=== PATIENT | female | born 1995 ===

== ENCOUNTER 2019-06-02 16:41 | Day surgery (SDC) | payer OTHER, SELFPAY ==
[2019-06-02] MEDS ORDERED: hydrALAZINE 20 MG/ML VIAL SLOW IVP PRN (17:15)
--- NOTE | 2019-06-02 17:50 | CON ---
DATE OF CONSULTATION: 06/02/2019 PRIMARY OB: None. CHIEF COMPLAINT: Pelvic pains. HISTORY OF PRESENT ILLNESS: The patient is a 24-year-old, reported G5, P3 female with an intrauterine at 39 weeks and 1 day, who recently moved from [place] to the area and has not established care. The patient is presenting with complaints of pelvic pain that she reports as sharp in nature. She denies uterine contractions. She denies vaginal bleeding or leakage of fluid. She also reports that her hands have been falling asleep while she is asleep. She denies any complications with her previous pregnancies. She states, this , she has been receiving care prior to moving here a few weeks ago. The patient denies any recent illness, fever, fall, headache, chest pain, shortness of breath, nausea, vomiting, diarrhea, constipation, hip problems, knee problems, or muscle weakness. She denies vaginal bleeding, leakage of fluid, or urinary urgency or frequency. PAST MEDICAL HISTORY: Negative. PAST SURGICAL HISTORY: She has had procedure for an ectopic . ALLERGIES: NO KNOWN DRUG ALLERGIES. SOCIAL HISTORY: Denies drug, alcohol, or tobacco use. MEDICATIONS: vitamins. OB LABORATORY DATA: Unavailable at the time of dictation. REVIEW OF SYSTEMS: Per HPI. PHYSICAL EXAMINATION: VITAL SIGNS: Blood pressure 116/72, heart rate of 83, respiratory rate of 18. GENERAL: She appears to be in no acute distress. She is alert and oriented, cooperative and pleasant to interact with. HEAD: Normocephalic and atraumatic. LUNGS: Clear to auscultation bilaterally. HEART: Has a regular rate and rhythm. ABDOMEN: Gravid, soft, and nontender. EXTREMITIES: Nontender and nonedematous. CERVICAL: 1, thick, and high per nursing staff. heart tracing shows the fetus with a baseline in the 120s with moderate long-term variability, positive 15 x 15 accelerations, no decelerations. Tocometer not showing any contractions. ASSESSMENT AND PLAN: The patient is a 24-year-old multiparous female with an intrauterine at 39 weeks, just moving to the area. She has no evidence of labor at this time. We will be attempting to acquire her records. Dr. Ruth, one of the local third year residents, has met with Ms. Ramos and will be helping her establish care with clinic and also get her records. The patient can be discharged home. Fetus is reactive and reassuring with a category 1 tracing. Job ID: [id number]
[2019-06-02 17:52] VITALS: BMI 24.9
== END 2019-06-02 17:30 | disposition home health service (06) ==
LOC: L&D/OP 16:41
PROVIDERS: ATTEND Obstetrics & Gynecology
DX: O23.593 Infection of other part of genital tract in pregnancy, third trimester (principal); B95.1 Streptococcus, group B, as the cause of diseases classified elsewhere; O09.13 Supervision of pregnancy with history of ectopic pregnancy, third trimester; Z3A.39 39 weeks gestation of pregnancy; Z88.0 Allergy status to penicillin
CPT/HCPCS: 87077; 87081; 99283

== ENCOUNTER 2019-06-11 19:29 | Inpatient (IN) | payer SELFPAY ==
[~2019-06-11 19:29] MED LIST: Bupivacaine/Epinephrine 0.25% 30 ML VIAL ONE
[2019-06-11 21:50] VITALS: BMI 33.0
[2019-06-11] MEDS ORDERED: Acetaminophen 500 MG TAB PO PRN (22:08)
[2019-06-11] MEDS ORDERED: Misoprostol 200 MCG TAB PR PRN (22:08)
[2019-06-11] MEDS ORDERED: NS / Oxytocin 40 units/1000ml 1,000 ML IV PRN (22:08)
[2019-06-11] MEDS ORDERED: Methylergonovine 0.2 MG/ML VIAL IM PRN (22:08)
[2019-06-11] MEDS ORDERED: Lidocaine 1% (PF) 30 ML VIAL SC PRN (22:08)
[2019-06-11] MEDS ORDERED: Carboprost 250 MCG/ML AMP IM PRN (22:08)
[2019-06-11] MEDS ORDERED: Docusate 100 MG CAP PO PRN (22:08)
[2019-06-11] MEDS ORDERED: Promethazine HCl 25 MG/ML VIAL IM PRN (22:08)
[2019-06-11] MEDS ORDERED: Ondansetron PF 4 MG/2 ML Vial IVP PRN (22:08)
[2019-06-11] MEDS ORDERED: Ibuprofen 800 MG TAB PO PRN (22:08)
[2019-06-11] MEDS ORDERED: Butorphanol Tartrate 1 MG/ML VIAL SLOW IVP PRN (22:08)
[2019-06-11] MEDS ORDERED: hydrALAZINE 20 MG/ML VIAL SLOW IVP PRN (22:08)
[2019-06-11] MEDS ORDERED: NS w/ Oxytocin 10 units 500 ML IV SCH ×2 (22:15)
[2019-06-11] MEDS: Lactated Ringer's 1,000 ML IV SCH (22:20)
[2019-06-11] MEDS: Misoprostol 100 MCG TAB VAG SCH (22:27)
[2019-06-11 22:29] LABS: Hemoglobin 12.1 g/dL (12.0-16.0); Mean Corpuscular HGB CONC 34.9 g/dL (32.0-36.0); Mean Corpuscular Hemoglobin 29.1 pg (27.0-31.0); Mean Corpuscular Volume 83.3 fL (78.0-98.0); Mean Platelet Volume 12.3 fL (7.4-10.4); Platelet Count 130 thou/uL (130-400); RBC Distribution Width 13.5 % (11.5-14.5); Red Blood Cell (RBC) Count 4.14 mill/uL (4.20-5.40); White Blood Cell (WBC) Count 10.8 thou/uL (4.8-10.8)
[2019-06-11] MEDS: Vancomycin 1 GM in Premix Bag 1 BAG IVPB SCH (22:33)
--- NOTE | 2019-06-11 22:42 | PDOC.FPROB ---
FMR OB H&P: HPI - History of Present Illness Chief Complaint: eIOL History of Present Illness: 24 yo F @ 40.3 wks by 19.2 wk US (JASPER 06/08/19) who presents for elective induction of labor. She says she has had no recent vaginal bleeding, loss of fluid, abnormal vaginal discharge, or contractions. She says she lost her mucus plug around 35 weeks and had some vaginal spotting some weeks ago that has since resolved. She says baby has been moving around well. 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 - Family History Family History: Acute storke, HTN, DMII, thyroid problems, mood disorders FMR OB H&P: Medications - Current Home Medications: Medication Instructions Recorded Confirmed Type Omeprazole 10 mg PO DAILY 06/02/19 06/11/19 History Vitamin 1 tab PO DAILY 06/02/19 06/11/19 History Allergies/Adverse Reactions: Allergies Allergy/AdvReac Type Severity Reaction Status Date / Time Penicillins Allergy Intermediate Severe Verified 06/11/19 21:52 Hives FMR OB H&P: ROS - Review of Systems General: denies: fever/chills Eyes: denies: vision changes ENT: denies: nasal congestion, rhinorrhea, sinus pain/pressure Cardiovascular: denies: chest pain, edema Respiratory: denies: cough, congestion, shortness of breath Gastrointestinal: denies: abdominal pain, nausea, vomiting, diarrhea, constipation Genitourinary (Female): denies: dysuria, vaginal discharge, vaginal bleeding, contractions Musculoskeletal: denies: pain, tenderness Neurologic: reports: numbness (in hands for 2 weeks). denies: weakness Integumentary: denies: itching, rash Hematologic/Lymphatic: denies: prolonged or excessive bleeding, enlarged lymph nodes FMR OB H&P: Vital Signs - Maternal Vital signs: Vital Signs - First Documented Temp Pulse Resp BP Pulse Ox 98.2 F 92 12 119/85 99 06/11/19 21:33 06/11/19 21:33 06/11/19 21:33 06/11/19 21:33 06/11/19 21:33 - Heart Tones Variability: moderate Acceleration: present Deceleration: absent Category: category 1 FMR OB H&P: Physical Exam - Physical Exam General: NAD HEENT: normocephalic and atraumatic, EOMI, MMM, conjunctiva clear, no scleral icterus, normal nasal mucosa, oropharynx clear Neck: supple, trachea midline, no LAD Heart: RRR, normal S1/S2, no murmurs/rubs/gallops, pulses present, no edema General: CTAB, no respiratory distress, good air movement, no rales/rhonchi, no wheezing, no retractions Abdomen: soft, gravid, non-tender, bowel sound present Musculoskeletal: pulses present, FROM in all four extremities Neurological: cranial nerves II through XII intact, no focal deficit Skin: no rash, good tugor Lymphatic: no unusual bruising or bleeding, no purpura, no petechia Psychiatric: normal mood and affect - Pelvic Exam Vulva: normal hair distribution, no masses, no lesions, no discharge SVE: 05/23/2 FMR OB H&P: Results - Labs Lab results: Laboratory Results - last 24 hr 06/11/19 22:18 WBC 10.8 RBC 4.14 L Hgb 12.1 Hct 34.5 L MCV 83.3 MCH 29.1 MCHC 34.9 RDW 13.5 Plt Count 130 MPV 12.3 H FMR OB H&P: A/P - Problem List (1) Current Visit: Yes Status: Acute Qualifiers: Weeks of gestation: 40 weeks Qualified Code(s): Z3A.40 - 40 weeks gestation of (2) GBS (group B Streptococcus carrier), +RV culture, currently Current Visit: Yes Status: Acute Code(s): O99.820 - STREPTOCOCCUS B CARRIER STATE COMPLICATING (3) Hx of trichomonal vaginitis Current Visit: Yes Status: Acute Code(s): Z86.19 - PERSONAL HISTORY OF OTHER INFECTIOUS AND PARASITIC DISEASES Disposition: 24 yo F @ 40.3 wks by 19.2 wk US (JASPER 06/08/19) who presents for elective induction of labor. 1. Term 40.3 wks * Admit for inductions of labor * SVE: * 3,30,-2 @ 2215 * Cytotec placed @ 2215 * LR @ 125 * FHT: 150s, accels, mod variability, no decels 2. GBS + Patient is allergic to amoxicillin * No sensitivities sent * Will treat with Vanc 3. Hx of Trichomonas 1T, treated * VP3 preformed * Will await results for ASHOK 4. Hx of Anemia Currently on Iron * Will check H&H Dispo: Will admit for induction of labor and recheck Q3H. Discussion: Date/Time: 06/11/192239 This H&P was discussed with [] and [] who agree with the above documentation and plan. Addendum - Attending - Attending Attestation Date/Time: 06/12/192011 I personally evaluated the patient and discussed the management with Dr. Sainz. I agree with the History, Examination, Assessment and Plan documented above with any addition or exceptions noted below. Elective induction, good dates, Stone < 8, begin with cytotec.
[2019-06-11 23:06] LABS: HBSAg Index 0.15 S/CO (0-0.99); Hep B Surf Ag Non-Reactive S/CO (NonReactive); Syphilis Antibody Nonreactive (Nonreactive); Syphilis Antibody Index 0.04 S/CO (<1.00 Non-Reactive)
--- NOTE | 2019-06-11 23:06 | PDOC.OPDEL ---
OB Operative/Delivery Note Delivery Dr/Surgeon: Gloria Pantoja Brading Pre-Delivery Diagnosis: active labor Procedure/Post Delivery Dx: spontaneous vaginal delivery Weeks gestation: 38 Anesthesia: local - Findings A Sex: female - 1 min: 8 - 5 min: 9 - Additional Findings/Plan Placenta delivered: spontaneous Repaired Obstetrical Laceration: other (perineal) Estimated blood loss: 254 Post delivery plan: routine recovery
--- NOTE | 2019-06-12 02:03 | PDOC.LDPN ---
Labor & Delivery Progress Note - Subjective Subjective: comfortable - Objective Vital signs reviewed and normal: yes General: NAD, resting Uterine fundus: non tender SVE: /-2 Dilation: 3 Effacement: 50% Station: -2 FHT: category 1 [place] contractions every: infrequent - Assessment (1) Current Visit: Yes Status: Acute Qualifiers: Weeks of gestation: 40 weeks Qualified Code(s): Z3A.40 - 40 weeks gestation of (2) GBS (group B Streptococcus carrier), +RV culture, currently Code(s): O99.820 - STREPTOCOCCUS B CARRIER STATE COMPLICATING Current Visit: Yes Status: Acute (3) Hx of trichomonal vaginitis Code(s): Z86.19 - PERSONAL HISTORY OF OTHER INFECTIOUS AND PARASITIC DISEASES Current Visit: Yes Status: Acute -: 1. Term 40.3 wks * Admit for inductions of labor * SVE: * 05/23/-2 @ 2215 * /2 @ 0130 * Cytotec placed @ 2215 * Will start pit * LR @ 125 * FHT: 150s, accels, mod variability, no decels 2. GBS + Patient is allergic to amoxicillin * No sensitivities sent * Received 1 dose of Vanc 3. Hx of Trichomonas 1T, treated * VP3 preformed- neg for trichomonas * Positive for Brigette 4. Hx of Anemia Currently on Iron * H&H wnl Dispo: Will start pit and recheck in 3 hours. Addendum - Attending - Attending Attestation Date/Time: 06/12/192012 I personally evaluated the patient and discussed the management with Dr. Sainz. I agree with the History, Examination, Assessment and Plan documented above with any addition or exceptions noted below.
[2019-06-12] MEDS ORDERED: Fentanyl 4 mcg/Bup 0.1% Cadd 100 ML ONE (02:39)
[2019-06-12] MEDS ORDERED: Promethazine HCl 25 MG/ML VIAL IM PRN (03:19)
[2019-06-12] MEDS ORDERED: diphenhydrAMINE 50 MG/ML VIAL IVP PRN (03:19)
[2019-06-12] MEDS ORDERED: Acetaminophen 325 MG TAB PO PRN (03:19)
[2019-06-12] MEDS ORDERED: EPHEDRINE 25 MG/5 ML SYRINGE SLOW IVP PRN (03:19)
[2019-06-12] MEDS ORDERED: Lactated Ringer's 500 ML IV PRN (03:19)
[2019-06-12] MEDS ORDERED: Ondansetron PF 4 MG/2 ML Vial IVP PRN ×2 (03:19→11:01)
[2019-06-12] MEDS ORDERED: Naloxone HCl 0.4 mg/ml Vial IVP PRN ×2 (03:19)
[2019-06-12] MEDS ORDERED: Communication Order-Pharmacy FS SCH (03:30)
[2019-06-12] MEDS ORDERED: Calcium Carbonate 500 MG ChewTAB PO SCH (03:30)
[2019-06-12] MEDS ORDERED: Fentanyl 4 mcg/Bupivacaine 0.1% Cassette 100 ML EPIDURAL SCH (03:30)
--- NOTE | 2019-06-12 05:06 | PDOC.LDPN ---
Labor & Delivery Progress Note - Subjective Subjective: comfortable - Objective Vital signs reviewed and normal: yes General: NAD, resting Uterine fundus: non tender SVE: /-2 Dilation: 5 Effacement: 75% Station: -2 FHT: category 1 [place] contractions every: 2-3 minutes - Assessment (1) Current Visit: Yes Status: Acute Qualifiers: Weeks of gestation: 40 weeks Qualified Code(s): Z3A.40 - 40 weeks gestation of (2) GBS (group B Streptococcus carrier), +RV culture, currently Code(s): O99.820 - STREPTOCOCCUS B CARRIER STATE COMPLICATING Current Visit: Yes Status: Acute (3) Hx of trichomonal vaginitis Code(s): Z86.19 - PERSONAL HISTORY OF OTHER INFECTIOUS AND PARASITIC DISEASES Current Visit: Yes Status: Acute Plan: continue plan of care -: 1. Term 40.3 wks * Admit for inductions of labor * SVE: * 05/23/-2 @ 2215 * /-2 @ 0130 * /2 @ 0445 * Cytotec placed @ 2215 * Pit started @ 0220 * Pit @ 6 0445 * LR @ 125 * FHT: 120s, accels, mod variability, no decels 2. GBS + Patient is allergic to amoxicillin * No sensitivities sent * Received 1 dose of Vanc 3. Hx of Trichomonas 1T, treated * VP3 preformed- neg for trichomonas * Positive for Brigette 4. Hx of Anemia Currently on Iron * H&H wnl Dispo: Continue current management and increase pit as needed recheck in 3 hours.
--- NOTE | 2019-06-12 09:22 | PDOC.OPDEL ---
OB Operative/Delivery Note - Additional Findings/Plan Compilations/Other Findings: Vaginal Delivery note Delivering Physician: Shelli Ruth Attending: Dante Procedure: Spontaneous Vaginal Delivery Anesthesia: Epidural QBL: pending at time of documentation. Pre-op Diagnosis: 1. Term intrauterine in labor 2. Hx of trichomonas 3. GBS positive 4. Late transfer of care Post-op Diagnosis: 1. Term intrauterine , delivered 2. same as above Indications: A 24y/o female presents to L&D for induction due to post- dates. Delivery Note: This is 24y/o female @ 40.4wks who delivered a viable M at 0842. Following an uneventful antepartum course, a vigorous M was delivered over an intact perineum in the occipitoanterior position. Anterior Shoulder and then remainder of the body delivered. No nuchal cord. The head was held down and mouth and nares were bulb suctioned. Cord clamped and cut and cord blood collected. Placenta delivered intact with a 3 vessel cord noted. Fundal massage was performed and the fundus was firm. The cervix and vagina were inspected and found to be free of lacerations. went to nursery in good condition for routine care. Apgars were 8/9 at 1 & 5 minutes, respectively. Patient tolerated delivery well and went to after routine recovery/care. Addendum - Attending - Attending Attestation Date/Time: 06/12/19 8191 I personally supervised and assisted with delivery.
[2019-06-12] MEDS ORDERED: Lanolin Ointment 7 GM TUBE TOP PRN (11:01)
[2019-06-12] MEDS ORDERED: hydrALAZINE 20 MG/ML VIAL SLOW IVP PRN (11:01)
[2019-06-12] MEDS ORDERED: Bisacodyl 10 MG SUPP PR PRN (11:01)
[2019-06-12] MEDS ORDERED: Adacel (T-DAP) 0.5 ML SYRINGE IM ONE (11:01)
[2019-06-12] MEDS ORDERED: NS / Oxytocin 40 units/1000ml 1,000 ML IV SCH (11:01)
[2019-06-12] MEDS ORDERED: diphenhydrAMINE 25 MG CAP PO PRN (11:01)
[2019-06-12] MEDS ORDERED: Preparation H Ointment 28 GM TUBE PR PRN (11:01)
[2019-06-12] MEDS ORDERED: Milk Of Magnesia 30 ML UDCUP PO PRN (11:01)
[2019-06-12] MEDS ORDERED: Benzocaine-Menthol 82.5 ML CAN TOP PRN (11:01)
--- NOTE | 2019-06-12 14:20 | PDOC.BPN ---
- Brief Progress Note Called by nursing for large clot passed. Weighed and noted to be 345mL. VSS no tachycardia. Again called shortly after for for additional soaked pad. Pt reports feeling weak. Pad to be weighed. Uterus is firm, mild ozzing without and large clots passed with massage. Will give 1gm TXA and re-assess. Type and cross 2U PRBCs. Monitor VS.
[2019-06-12] MEDS ORDERED: Sodium Chloride 0.9% 10 ML ONE (14:23)
[2019-06-12] MEDS ORDERED: Tranexamic Acid 1,000 MG in Sodium Chloride 0.9% 250 ML 250 ML IVPB SCH (14:30)
[2019-06-12] MEDS: Misoprostol 100 MCG TAB VAG SCH ×3 (15:24→15:53)
[2019-06-12] MEDS: Ibuprofen 800 MG TAB PO SCH ×2 (15:26→22:16)
[2019-06-12] MEDS: Lactated Ringer's 1,000 ML IV SCH (15:52)
[2019-06-12] MEDS: Vancomycin 1 GM in Premix Bag 1 BAG IVPB SCH (15:53)
[2019-06-12 16:09] LABS: Hemoglobin 8.6 g/dL (12.0-16.0); Mean Corpuscular HGB CONC 35.4 g/dL (32.0-36.0); Mean Corpuscular Hemoglobin 29.5 pg (27.0-31.0); Mean Corpuscular Volume 83.4 fL (78.0-98.0); Platelet Count 101 thou/uL (130-400); White Blood Cell (WBC) Count 13.9 thou/uL (4.8-10.8)
[2019-06-12] MEDS: Ferrous Sulfate 325 MG TAB PO SCH (18:23)
[2019-06-12] MEDS: Docusate Calcium (SURFAK) 240 MG CAP PO SCH (22:16)
[2019-06-13] MEDS: Ibuprofen 800 MG TAB PO SCH ×3 (05:49→22:21)
--- NOTE | 2019-06-13 05:56 | PDOC.PP ---
Post Progress Note Post Day #: 1 Subjective: Doing well, no concerns. PO intake tolerated: yes Flatus: yes Ambulation: yes Vital Signs (12 hours) Temp Pulse Resp BP Pulse Ox 06/13/19 03:00 98.2 F 76 15 106/57 L 97 06/12/19 23:40 98.2 F 81 16 101/56 L 06/12/19 20:25 98.5 F 87 17 127/56 L 98 Weight Weight 76.657 kg - Physical Examination General: NAD Cardiovascular: no m/r/g, RRR Respiratory: clear to auscultation bilaterally, non-labored breathing Abdominal: + bowel sounds, lochia, no distention, appropriately TTP Neurological: no gross focal deficits Psychiatric: A&Ox3, normal affect Result Diagrams: 06/12/19 15:15 Additional Labs: Post Labs Blood Type O POSITIVE 06/11/19 23:46 Hep Bs Antigen Non-Reactive S/CO (NonReactive) 06/11/19 22:18 (1) Vaginal delivery Code(s): O80 - ENCOUNTER FOR FULL-TERM UNCOMPLICATED DELIVERY Status: Acute (2) GBS (group B Streptococcus carrier), +RV culture, currently Code(s): O99.820 - STREPTOCOCCUS B CARRIER STATE COMPLICATING Status : Acute (3) Hx of trichomonal vaginitis Code(s): Z86.19 - PERSONAL HISTORY OF OTHER INFECTIOUS AND PARASITIC DISEASES Status: Acute - Assessment/Plan 1. day 1 - Routine PP Care - Doing well. - Ibuprofen for pain control - Desires nexplanon for contraception, refer in clinic. - Increased vaginal bleeding yesterday, decreased s/p TXA x 1g. Will monitor closely. 2. H/o trichomonas in - S/p treatment. Vaginitis screen negative for trichomonas. - Brigette positive. Addendum - Attending - Attending Attestation Date/Time: 06/13/19 0022 I personally evaluated the patient and discussed the management with Dr. Marques. I agree with the History, Examination, Assessment and Plan documented above with any addition or exceptions noted below.
[2019-06-13] MEDS: Docusate Calcium (SURFAK) 240 MG CAP PO SCH ×2 (09:35→22:21)
[2019-06-13] MEDS: Prenatal Vitamin 1 TAB PO SCH (09:35)
[2019-06-13] MEDS: Ferrous Sulfate 325 MG TAB PO SCH ×2 (09:35→18:03)
[2019-06-14] MEDS: Ibuprofen 800 MG TAB PO SCH (06:01)
--- NOTE | 2019-06-14 06:18 | PDOC.PP ---
Post Progress Note Post Day #: 2 Subjective: Feeling well today. Tolerating PO. No concerns today. Denies feeling weak or lethargic. PO intake tolerated: yes Flatus: yes Ambulation: yes Vital Signs (12 hours) Temp Pulse Resp BP Pulse Ox 06/13/19 19:40 98.4 F 95 14 123/67 95 Weight Weight 76.657 kg - Physical Examination General: NAD Cardiovascular: no m/r/g, RRR Respiratory: clear to auscultation bilaterally Abdominal: + bowel sounds, lochia (downtrending), no distention, appropriately TTP Fundus firm & at: level of umbilicus Neurological: no gross focal deficits Psychiatric: A&Ox3, normal affect Result Diagrams: 06/12/19 15:15 Additional Labs: Post Labs Blood Type O POSITIVE 06/11/19 23:46 Hep Bs Antigen Non-Reactive S/CO (NonReactive) 06/11/19 22:18 (1) Hx of trichomonal vaginitis Code(s): Z86.19 - PERSONAL HISTORY OF OTHER INFECTIOUS AND PARASITIC DISEASES Status: Acute (2) Vaginal delivery Code(s): O80 - ENCOUNTER FOR FULL-TERM UNCOMPLICATED DELIVERY Status: Acute - Assessment/Plan 24 yo now [id number] delivered at 40.3 wga: 1. day 2, s/p - Routine PP Care - Doing well. - Ibuprofen for pain control - Desires nexplanon for contraception, refer in clinic. - Increased vaginal bleeding yesterday, decreased s/p TXA x 1g. Will monitor closely. - PP hgb at 8.6. Will d/c on iron supplementation 2. H/o trichomonas in - S/p treatment. Vaginitis screen negative for trichomonas. - Brigette positive. 3. Plan for adoption of by patient's aunt Dispo: possible d/c today. Consider bed and breakfast if wishes to stay w/ who is requiring phototherapy. Addendum - Attending - Attending Attestation Date/Time: 06/15/19 5489 I personally evaluated the patient and discussed the management with Dr. Whitman on 06/14/19. I agree with the History, Examination, Assessment and Plan documented above with any addition or exceptions noted below. Pain controlled. Lochia normal. Afeb. Fundus Firm. Stable for d/c home.
[2019-06-14 08:12] VITALS: BP 108/64; TEMP 98.3
[2019-06-14] MEDS: Ferrous Sulfate 325 MG TAB PO SCH (09:13)
[2019-06-14] MEDS: Docusate Calcium (SURFAK) 240 MG CAP PO SCH (09:13)
[2019-06-14] MEDS: Prenatal Vitamin 1 TAB PO SCH (09:13)
--- NOTE | 2019-06-16 06:47 | PQF ---
Brain Navarrete Robert A MD [id number] CLINICAL DOCUMENTATION CLARIFICATION FORM: POST DISCHARGE Addendum to original discharge summary date: ____ Late entry note date: __ DATE: 06/16/19 ATTN: Timoteo Justice MD Please exercise your independent, professional judgment in responding to the clarification form. Clinical indicators are provided on the bottom of this form for your review Please check appropriate box(s): [ ] Post hemorrhage [ ] Expected bleeding [ ] Other diagnosis [ ] Unable to determine CLINICAL INDICATORS - SIGNS / SYMPTOMS / LABS - Increased vaginal bleeding yesterday, decreased TXA x1g- Post PN, 06/14 , Pope ISAAC Mahmood - PP hgb at 8.6, will d/c on iron supplementation- Post PN, 06/14, Pope ISAAC Mahmood - Uterus is firm oozing without and large clots passed with massage- Brief PN, 06/12, Brain Howell MD - QBL: 135ml- Obstetric DS, 06/13, Phil Gold MD RISK FACTORS - Spontaneous vaginal delivery- Obstetric DS, 06/13, Phil Gold MD TREATMENT: - 1gm TXA-Brief PN, 06/12, Brain Howell MD (This form is maintained as a part of the permanent medical record) 2014 [employer] All Rights Reserved [email or web address]
== END 2019-06-14 11:50 | disposition home or self-care (01) | DRG 807 ==
LOC: L&D 19:29 → 3SW 06-12 11:41
PROVIDERS: ADMIT Emergency Medicine; ATTEND Emergency Medicine
PROC: 10E0XZZ Delivery of Products of Conception, External Approach (ICD-10-PCS; principal; 2019-06-11)
PROC: 3E033VJ Introduction of Other Hormone into Peripheral Vein, Percutaneous Approach (ICD-10-PCS; 2019-06-11)
DX: O99.02 Anemia complicating childbirth (principal); Z37.0 Single live birth; O99.824 Streptococcus B carrier state complicating childbirth; Z3A.40 40 weeks gestation of pregnancy; D64.9 Anemia, unspecified
CPT/HCPCS: 36415; 51702; 85027; 86780; 86850; 86900; 86901; 87340; 87480; 87510; 87660; J1200; J2590; J3370; J7050

== ENCOUNTER 2020-02-28 17:11 | Emergency (ER) | payer SELFPAY ==
[2020-02-29 02:02] LABS: SARS-CoV-2 MS2 Positive; SARS-CoV-2 N Gene Positive; SARS-CoV-2 S Gene Positive; SARS-CoV-2 by NAA DETECTED (NotDetected); SARS-CoV-2 orf1ab Positive
== END 2020-02-28 17:55 | disposition home or self-care (01) ==
LOC: ERS 17:11
DX: O98.512 Other viral diseases complicating pregnancy, second trimester (principal); U07.1 COVID-19
CPT/HCPCS: 87635; 99283; U0003

== ENCOUNTER 2022-03-09 12:23 | Inpatient (IN) | payer OTHER ==
[~2022-03-09 12:23] MED LIST changes: -Bupivacaine/Epinephrine 0.25% 30 ML VIAL ONE; +Iopamidol-370 76% 500 ML 1 ML ONE
[2022-03-09 12:58] LABS: Hemoglobin 7.7 g/dL (12.0-16.0); Mean Corpuscular HGB CONC 32.7 g/dL (32.0-36.0); Mean Corpuscular Hemoglobin 23.2 pg (27.0-31.0); Mean Corpuscular Volume 70.8 fl (78.0-98.0); Mean Platelet Volume 9.9 fL (7.4-10.4); Platelet Count 273 10x3/uL (130-400); RBC Distribution Width 14.5 % (11.5-14.5); Red Blood Cell (RBC) Count 3.34 mill/uL (4.20-5.40); White Blood Cell (WBC) Count 11.1 10x3/uL (4.8-10.8)
[2022-03-09 13:03] LABS: #Eosinphils 0.3 thou/uL (0.0-0.7); #Monocytes 0.5 thou/uL (0.11-0.59); #Neutrophils 8.3 thou/uL (1.40-6.50); %Basophils 0.4 % (0.0-1.0); %Eosinophils 2.4 % (0.0-10.0); %Lymphocytes 18.3 % (21.0-51.0); %Monocytes 4.3 % (0.0-10.0); %Neutrophils 74.5 % (42.0-75.0)
[2022-03-09 13:12] LABS: ALT (SGPT) 26 U/L (8-55); AST (SGOT) 19 U/L (5-34); Albumin 3.3 g/dL (3.5-5.0); Alkaline Phosphatase 133 U/L (40-110); Anion Gap 12 mmol/L (10-20); BUN (Urea Nitrogen) 10 mg/dL (7.0-18.7); Bilirubin, Total 0.3 mg/dL (0.2-1.2); Calc. Creatinine Clearance 0 mL/min (70-130); Calcium 8.9 mg/dL (7.8-10.44); Carbon Dioxide 20 mmol/L (22-29); Chloride 109 mmol/L (98-107); Estimated GFR 122; Globulin 3.2 g/dL (2.4-3.5); Glucose 84 mg/dL (70-105); Potassium 4.1 mmol/L (3.5-5.1); Protein, Total 6.5 g/dL (6.0-8.3); Sodium 137 mmol/L (136-145)
[2022-03-09 13:17] LABS: Bacteria/HPF None Seen HPF (None Seen); Bilirubin Negative (Negative); Blood, Urine 3+ (Negative); Clarity Clear (Clear); Glucose, Urine (Dipstick) Normal (Negative); Ketone, Urine Negative (Negative); Leukocyte 500 Leu/uL (Negative); Nitrite Negative (Negative); Protein, Urine (Dipstick) Negative (Neg-Trace); RBC/HPF Greater than 50 HPF (0-3); Specific Gravity, Urine 1.015 (1.002-1.036); Squamous Epithelial 0-3 HPF (0-3); Urobilinogen Normal mg/dL (Less than 2); pH, Urine 6.5 (5.0-9.0)
[2022-03-09 13:27] LABS: MDiff Complete? YES; Microcytosis SLIGHT = 6-15 cells (100X) (0-5/hpf); Platelet Morphology Comment Appears Adequate
[2022-03-09 13:44] LABS: SARS-CoV-2 NAA Rapid Test Not Detected (NotDetected)
[2022-03-09] MEDS ORDERED: Furosemide 40 MG/4 ML VIAL ONE (13:48)
[2022-03-09] MEDS ORDERED: Acetaminophen 325 MG TAB PO PRN (14:57)
[2022-03-09] MEDS ORDERED: Promethazine 25 MG TAB PO PRN (14:59)
[2022-03-09] MEDS: cefTRIAXone\\ROCEPHIN 1 GM in Sodium Chloride 0.9% 100 ML IVPB SCH (17:15)
[2022-03-09 17:41] VITALS: BMI 38.2
[2022-03-09] MEDS: Azithromycin 500 MG in Sodium Chloride 0.9% 250 ML 250 ML IVPB SCH (18:44)
[2022-03-10 04:42] LABS: #Basophils 0.1 thou/uL (0.0-0.2); #Eosinphils 0.3 thou/uL (0.0-0.7); #Lymphocytes 2.5 thou/uL (1.20-3.40); #Monocytes 0.6 thou/uL (0.11-0.59); #Neutrophils 6.1 thou/uL (1.40-6.50); %Basophils 0.6 % (0.0-1.0); %Eosinophils 3.5 % (0.0-10.0); %Lymphocytes 25.8 % (21.0-51.0); %Monocytes 5.9 % (0.0-10.0); %Neutrophils 64.2 % (42.0-75.0); Mean Corpuscular HGB CONC 32.6 g/dL (32.0-36.0); Mean Corpuscular Volume 70.6 fl (78.0-98.0); Platelet Count 305 10x3/uL (130-400); RBC Distribution Width 14.6 % (11.5-14.5); Red Blood Cell (RBC) Count 3.47 mill/uL (4.20-5.40); White Blood Cell (WBC) Count 9.6 10x3/uL (4.8-10.8)
[2022-03-10 04:49] LABS: Anion Gap 13 mmol/L (10-20); BUN (Urea Nitrogen) 11 mg/dL (7.0-18.7); Calc. Creatinine Clearance 167 mL/min (70-130); Calcium 8.5 mg/dL (7.8-10.44); Carbon Dioxide 23 mmol/L (22-29); Chloride 108 mmol/L (98-107); Estimated GFR 119; Glucose 90 mg/dL (70-105); Sodium 140 mmol/L (136-145)
[2022-03-10] MEDS ORDERED: Iron, Sodium Ferric Gluconate 250 MG in Sodium Chloride 0.9% 250 ML 250 ML IVPB SCH (12:00)
[2022-03-10] MEDS ORDERED: Furosemide 20 MG/2 ML VIAL SLOW IVP SCH (13:15)
[2022-03-10] MEDS ORDERED: Potassium Chloride 20 MEQ TAB PO SCH (13:15)
[2022-03-10] MEDS: Carvedilol 6.25 MG TAB PO SCH (17:39)
[2022-03-10] MEDS: cefTRIAXone\\ROCEPHIN 1 GM in Sodium Chloride 0.9% 100 ML IVPB SCH (17:40)
[2022-03-10] MEDS: Azithromycin 500 MG in Sodium Chloride 0.9% 250 ML 250 ML IVPB SCH (17:41)
[2022-03-11 04:56] LABS: Anion Gap 15 mmol/L (10-20); BUN (Urea Nitrogen) 10 mg/dL (7.0-18.7); Calc. Creatinine Clearance 182 mL/min (70-130); Calcium 8.9 mg/dL (7.8-10.44); Carbon Dioxide 20 mmol/L (22-29); Chloride 106 mmol/L (98-107); Estimated GFR 124; Glucose 91 mg/dL (70-105); Potassium 3.8 mmol/L (3.5-5.1); Sodium 137 mmol/L (136-145)
[2022-03-11] MEDS: Carvedilol 6.25 MG TAB PO SCH (11:24)
[2022-03-11 12:27] VITALS: BP 105/60; TEMP 97.8
[2022-03-11] MEDS ORDERED: Potassium Chloride 20 MEQ TAB PO SCH (12:30)
[2022-03-12] MEDS ORDERED: Iron Polysaccharides Complex 150 MG CAP PO SCH (08:00)
[2022-03-12] MEDS ORDERED: Potassium Chloride 10 MEQ TAB PO SCH (08:00)
[2022-03-12] MEDS ORDERED: Lisinopril 5 MG TAB PO SCH (09:00)
[2022-03-12] MEDS ORDERED: Furosemide 20 MG TAB PO SCH (09:00)
== END 2022-03-11 14:14 | disposition home or self-care (01) | DRG 776 ==
LOC: ERS 12:23 → 2NO 14:34 → OBSVTOIN 03-11 10:51
PROVIDERS: ADMIT Internal Medicine; ATTEND Internal Medicine
DX: O90.3 Peripartum cardiomyopathy (principal); J18.9 Pneumonia, unspecified organism; O86.20 Urinary tract infection following delivery, unspecified; N39.0 Urinary tract infection, site not specified; O90.81 Anemia of the puerperium; O99.53 Diseases of the respiratory system complicating the puerperium; Z20.822 Contact with and (suspected) exposure to COVID-19; D50.9 Iron deficiency anemia, unspecified; I49.3 Ventricular premature depolarization; Z88.0 Allergy status to penicillin; Z79.899 Other long term (current) drug therapy
CPT/HCPCS: 36415; 71045; 71275; 80048; 80053; 81003; 81015; 82728; 83880; 84484; 85025; 85379; 86850; 86900; 86901; 93005; 93306; 96365; 96366; 96372; 96374; 96375; 96376; G0378; J0456; J0696; J1650; J1940; J2916; J3490; J7050; Q9967; U0002